=== PATIENT | male | born 1930 | race Caucasian/White ===

== ENCOUNTER 2017-08-29 19:11 | Emergency (ER) | payer MEDICARE, OTHER ==
[2017-08-29] MEDS ORDERED: Zofran 4 MG/2 ML VIAL IV ONE (19:40)
--- NOTE | 2017-08-29 19:44 | ERPHSYRPT ---
- History of Present Illness Time Seen by Provider: 08/29/17 19:30 Source: patient, family Exam Limitations: no limitations Patient Subjective Stated Complaint: pt seen dentist this am, given amoxicillin for tooth; this afternoon started feeling weak, chills, unable to stand without assist, nausea but denies vomiting, polyuria every 20-30 mins. Triage Nursing Assessment: pt assisted to room per wheelchair; a&o x3; skin p, w , & d; very weak to stand; family at bedside. Physician History: 87 y/o male with history of a fib comes to the ER with complaints of weakness, dizziness, nausea and chills that started today. Pt also admits to polyuria every 20 mins. Pt was seen by his dentist today and started on amoxicillin today. Pt denies any fever, headache, chest pain, shortness of breath, palpitations, abdominal pain, vomiting or diarrhea. Timing/Duration: today Severity: mild Modifying Factors: Improves With: nothing Associated Symptoms: nausea, chills Allergies/Adverse Reactions: No Known Drug Allergies Allergy (Verified 08/29/17 19:38) Hx Tetanus, Diphtheria Vaccination/Date Given: No Hx Influenza Vaccination/Date Given: No Hx Pneumococcal Vaccination/Date Given: Yes Immunizations Up to Date: No - Review of Systems Constitutional: Weakness, No Fever, No Chills Eyes: No Symptoms Ears, Nose, & Throat: No Symptoms Respiratory: No Cough, No Dyspnea Cardiac: No Chest Pain, No Edema, No Syncope Abdominal/Gastrointestinal: Nausea, No Abdominal Pain, No Vomiting, No Diarrhea Genitourinary Symptoms: Frequency, No Dysuria Musculoskeletal: No Back Pain, No Neck Pain Skin: No Rash Neurological: Dizziness, No Focal Weakness, No Sensory Changes Psychological: No Symptoms Endocrine: No Symptoms All Other Systems: Reviewed and Negative - Past Medical History Pertinent Past Medical History: Yes Neurological History: No Pertinent History ENT History: No Pertinent History Cardiac History: No Pertinent History, Arrhythmia Respiratory History: No Pertinent History Endocrine Medical History: No Pertinent History Musculoskeletal History: Arthritis GI Medical History: GERD History: No Pertinent History Psycho-Social History: No Pertinent History Male Reproductive Disorders: No Pertinent History - Past Surgical History Past Surgical History: Yes Neuro Surgical History: No Pertinent History Cardiac: No Pertinent History Respiratory: Chest Surgery Gastrointestinal: No Pertinent History Genitourinary: No Pertinent History Musculoskeletal: Joint Replacement Male Surgical History: No Pertinent History Other Surgical History: left knee replacement, left shoulder arthroscopic surgery - Social History Smoking Status: Never smoker How long have you smoked: 20 years Exposure to second hand smoke: No Drug Use: none Patient Lives Alone: No - Nursing Vital Signs Nursing Vital Signs: Initial Vital Signs Temperature 99.7 F 08/29/17 19:30 Pulse Rate 95 H 08/29/17 19:30 Respiratory Rate 18 08/29/17 19:30 Blood Pressure 135/79 08/29/17 19:30 O2 Sat by Pulse Oximetry 94 L 08/29/17 19:30 Pain Scale Pain Intensity 0 - Physical Exam General Appearance: no apparent distress, alert Eye Exam: PERRL/EOMI, eyes nml inspection Ears, Nose, Throat Exam: normal ENT inspection, TMs normal, pharynx normal, moist mucous membranes Neck Exam: normal inspection, non-tender, supple, full range of motion Respiratory Exam: normal breath sounds, lungs clear, No respiratory distress Cardiovascular Exam: regular rate/rhythm, normal heart sounds, normal peripheral pulses Gastrointestinal/Abdomen Exam: soft, normal bowel sounds, No tenderness, No mass Back Exam: normal inspection, normal range of motion, No CVA tenderness, No vertebral tenderness Extremity Exam: normal inspection, normal range of motion, pelvis stable Neurologic Exam: alert, oriented x 3, cooperative, normal mood/affect, nml cerebellar function, nml station & gait, sensation nml, No motor deficits Skin Exam: normal color, warm, dry, No rash Lymphatic Exam: No adenopathy SpO2: 94 Oxygen Delivery: Room Air - Course Nursing assessment & vital signs reviewed: Yes EKG Interpreted by Me: RATE, NORMAL AXIS, NORMAL INTERVALS, NORMAL QRS, NORMAL ST-T Ordered Tests: Active Orders 24 hr Category Date Time Status Collections Clerk STAT Care 08/29/17 19:39 Active EKG-ER Only STAT Care 08/29/17 19:38 Active IV Insertion STAT Care 08/29/17 19:38 Active CHEST 2 VIEWS (PA AND LAT) Stat Exams 08/29/17 20:00 Taken CBC W DIFF Stat Lab 08/29/17 20:30 Completed CK-Creatinine Phosphokinase Stat Lab 08/29/17 20:30 Completed CMP Stat Lab 08/29/17 20:30 Completed MAGNESIUM Stat Lab 08/29/17 20:30 Completed Manual Differential NC Stat Lab 08/29/17 20:30 Completed PROTIME WITH INR Stat Lab 08/29/17 20:30 Completed PTT Stat Lab 08/29/17 20:30 Completed TROPONIN Q3H Lab 08/29/17 20:30 Completed TROPONIN Q3H Lab 08/29/17 22:45 Ordered TROPONIN Q3H Lab 08/30/17 01:45 Ordered TROPONIN Q3H Lab 08/30/17 04:45 Ordered TROPONIN Q3H Lab 08/30/17 07:45 Ordered UA W/RFX UR CULTURE Stat Lab 08/29/17 19:39 Uncollected Medication Summary Generic Name Dose Route Start Last Admin Trade Name Freq PRN Reason Stop Dose Admin Sodium Chloride 1,000 mls @ 999 mls/hr 08/29/17 21:48 08/29/17 21:57 Sodium Chloride 0.9% 1000 Ml IV 08/29/17 22:48 999 mls/hr .Q1H1M STA Administration Discontinued Medications Generic Name Dose Route Start Last Admin Trade Name Freq PRN Reason Stop Dose Admin Sodium Chloride Confirm 08/29/17 21:53 Sodium Chloride 0.9% 1000 Ml Administered 08/29/17 21:54 Dose 1,000 mls @ ud .ROUTE .STK-MED ONE Ondansetron HCl 4 mg 08/29/17 19:40 08/29/17 20:44 Zofran 4 Mg/2 Ml Vial IV 08/29/17 19:41 4 mg STAT ONE Administration Ondansetron HCl Confirm 08/29/17 20:35 Zofran 4 Mg/2 Ml Vial Administered 08/29/17 20:36 Dose 4 mg .ROUTE .STK-MED ONE Lab/Rad Data: Laboratory Result Diagrams 08/29/17 20:30 08/29/17 20:30 Laboratory Results 08/29/17 08/29/17 08/29/17 Range/Units 20:30 20:30 20:30 WBC (4.0-10.5) K/mm3 RBC (4.1-5.6) M/mm3 Hgb (12.5-18.0) gm/dl Hct (42-50) % MCV (78-100) fl MCH (26-32) pg MCHC (32-36) g/dl RDW (11.5-14.0) % Plt Count (150-450) K/mm3 MPV (6-9.5) fl Absolute Granulocytes (1.4-6.9) PT 15.8 H (8.83-12.87) SECONDS INR 1.35 (0.8-3.0) APTT 45.9 H (24.1-36.1) SECONDS Sodium 137 (137-145) mmol/L Potassium 3.6 (3.5-5.1) mmol/L Chloride 108 H (98-107) mmol/L Carbon Dioxide 22 (22-30) mmol/L Anion Gap 11.0 (5-15) MEQ/L BUN 20 (9-20) mg/dL Creatinine 1.08 (0.66-1.25) mg/dL Estimated GFR > 60.0 ML/MIN Glucose 136 H (74-106) mg/dL Calcium 9.2 (8.4-10.2) mg/dL Magnesium 1.9 (1.6-2.3) mg/dL Total Bilirubin 1.20 (0.2-1.3) mg/dL AST 20 (17-59) U/L ALT 20 (0-50) U/L Alkaline Phosphatase 68 (38-126) U/L Creatine Kinase 141 (55-170) U/L Troponin I < 0.012 (0.000-0.034) ng/mL Serum Total Protein 6.4 (6.3-8.2) g/dL Albumin 3.8 (3.5-5.0) g/dL /07/12 Range/Units 20:30 WBC 10.0 (4.0-10.5) K/mm3 RBC 4.60 (4.1-5.6) M/mm3 Hgb 14.3 (12.5-18.0) gm/dl Hct 41.1 L (42-50) % MCV 89.3 (78-100) fl MCH 31.1 (26-32) pg MCHC 34.8 (32-36) g/dl RDW 13.9 (11.5-14.0) % Plt Count 168 (150-450) K/mm3 MPV 9.9 H (6-9.5) fl Absolute Granulocytes 9.15 H (1.4-6.9) PT (8.83-12.87) SECONDS INR (0.8-3.0) APTT (24.1-36.1) SECONDS Sodium (137-145) mmol/L Potassium (3.5-5.1) mmol/L Chloride (98-107) mmol/L Carbon Dioxide (22-30) mmol/L Anion Gap (5-15) MEQ/L BUN (9-20) mg/dL Creatinine (0.66-1.25) mg/dL Estimated GFR ML/MIN Glucose (74-106) mg/dL Calcium (8.4-10.2) mg/dL Magnesium (1.6-2.3) mg/dL Total Bilirubin (0.2-1.3) mg/dL AST (17-59) U/L ALT (0-50) U/L Alkaline Phosphatase (38-126) U/L Creatine Kinase (55-170) U/L Troponin I (0.000-0.034) ng/mL Serum Total Protein (6.3-8.2) g/dL Albumin (3.5-5.0) g/dL - Progress Progress: improved Progress Note: 08/29/17 22:30 Pt feels better after receiving a liter of NS fluids. The labs, including cardiac workup, and CXR are all within normal limits. Pt is able to walk with no difficulties. - Departure Time of Disposition: 22:32 Departure Disposition: Home Clinical Impression: Weakness, Dehydration Condition: Stable Critical Care Time: No Referrals: GIOVANNI PARISI [Primary Care Provider] - Instructions: Generalized Weakness (DC), Dehydration, Adult (DC) Additional Instructions: Return to the ER if you should have worsening dizziness, weakness, chest pain, shortness of breath or nausea.
[2017-08-29] MEDS ORDERED: Zofran 4 MG/2 ML VIAL ONE (20:35)
[2017-08-29 21:13] LABS: Granulocyte Absolute (ANC) 9.15 (1.4-6.9); Hematocrit 41.1 % (42-50); Hemoglobin 14.3 gm/dl (12.5-18.0); Mean Cell Volume 89.3 fl (78-100); Mean Corpuscular Hemoglobin 31.1 pg (26-32); Mean Corpuscular Hgb Concent. 34.8 g/dl (32-36); Mean Platelet Volume 9.9 fl (6-9.5); Platelet Count 168 K/mm3 (150-450); Red Cell Distribution Width 13.9 % (11.5-14.0)
[2017-08-29 21:32] LABS: INR 1.35 (0.8-3.0)
[2017-08-29 21:34] LABS: PTT 45.9 SECONDS (24.1-36.1)
[2017-08-29 21:37] LABS: ALBUMIN 3.8 g/dL (3.5-5.0); ALKALINE PHOSPHATASE 68 U/L (38-126); BLOOD UREA NITROGEN 20 mg/dL (9-20); CHLORIDE 108 mmol/L (98-107); CK-Creatinine Phosphokinase 141 U/L (55-170); Calcium 9.2 mg/dL (8.4-10.2); Carbon Dioxide 22 mmol/L (22-30); Creatinine 1 1.08 mg/dL (0.66-1.25); Glucose 136 mg/dL (74-106); Potassium 3.6 mmol/L (3.5-5.1); SGOT/AST 20 U/L (17-59); SGPT/ALT 20 U/L (0-50); SODIUM 137 mmol/L (137-145); Total Protein 6.4 g/dL (6.3-8.2)
[2017-08-29] MEDS ORDERED: Sodium Chloride 0.9% 1000 ML 1,000 ML IV STA (21:48)
[2017-08-29] MEDS ORDERED: Sodium Chloride 0.9% 1000 ML 1,000 ML ONE (21:53)
[2017-08-29 22:45] VITALS: BP 93/53; PULSE 72; O2SAT 95
[2017-08-29 22:51] LABS: BAND 5 % (0.0-2.0); Lymphocytes 3 % (24-44); Monocyte 6 % (0.0-12.0); Neutrophils 86 % (36.-66.); Platelet Estimate NORMAL (NORMAL); Total Cells Counted 100
--- NOTE | 2017-08-30 09:01 | XRAY ---
Indication: Weakness and fever. Comparison: July 12, 2017. PA/lateral chest again demonstrates a few incidental calcified granulomas. Minimal lingular fibrosis/scarring. No focal infiltrate, consolidation, or large effusion. Heart is not enlarged. Bony thorax intact again with mild osteopenia, degenerative changes, and scoliosis. Impression: Nonacute chest with chronic features.
== END 2017-08-29 22:44 | disposition home or self-care (01) ==
LOC: ED 19:11
DX: R53.1 Weakness (principal); E86.0 Dehydration; R42 Dizziness and giddiness; R11.0 Nausea; R35.8 Other polyuria
CPT/HCPCS: 36000; 36415; 71046; 80053; 82550; 83735; 84484; 85025; 85610; 85730; 93005; 93041; 96360; 96374; 99284; J2405

== ENCOUNTER 2017-08-30 18:54 | Inpatient (IN) | payer MEDICARE ==
[2017-08-30] MEDS ORDERED: Zofran 4 MG/2 ML VIAL IV ONE (19:24)
[2017-08-30] MEDS ORDERED: Sodium Chloride 0.9% 1000 ML 1,000 ML IV STA (19:24)
[2017-08-30] MEDS ORDERED: Zofran 4 MG/2 ML VIAL ONE (19:29)
[2017-08-30] MEDS ORDERED: Sodium Chloride 0.9% 1000 ML 1,000 ML ONE (19:29)
--- NOTE | 2017-08-30 19:33 | ERPHSYRPT ---
- History of Present Illness Time Seen by Provider: 08/30/17 19:20 Source: patient, family Exam Limitations: no limitations Patient Subjective Stated Complaint: pt states he has been increasingly weak through the day, has had urinary frequency, and has alverto chilling. Triage Nursing Assessment: pt alert and oriented, answers questions approp. pt ambulatory with cane, slow steady gait noted. respirations nonlabored. bilat upper and lower ext strength equal. edema noted to bilat feet and ankles, worse to rt side- pt states is his norm. pt voided small amt on arrival- katerin and clear Physician History: 87 y/o male comes back to the ER with complaints of weakness, dizziness, nausea and polyuria that started again today. Pt was seen in the ER last night and improved with NS fluids. Pt also admits to chills, but no fever, chest pain, shortness of breath, cough, abdominal pain, vomiting or diarrhea. Timing/Duration: today Severity: mild Associated Symptoms: nausea, chills Allergies/Adverse Reactions: No Known Drug Allergies Allergy (Verified 08/29/17 19:38) Home Medications: Amoxicillin [Amoxil] 500 mg PO TID 08/30/17 [History] Hx Tetanus, Diphtheria Vaccination/Date Given: No Hx Influenza Vaccination/Date Given: No Hx Pneumococcal Vaccination/Date Given: Yes Immunizations Up to Date: No - Review of Systems Constitutional: Weakness, No Fever, No Chills Eyes: No Symptoms Ears, Nose, & Throat: No Symptoms Respiratory: No Cough, No Dyspnea Cardiac: No Chest Pain, No Edema, No Syncope Abdominal/Gastrointestinal: Nausea, No Abdominal Pain, No Vomiting, No Diarrhea Genitourinary Symptoms: Frequency, No Dysuria Musculoskeletal: No Back Pain, No Neck Pain Skin: No Rash Neurological: No Dizziness, No Focal Weakness, No Sensory Changes Psychological: No Symptoms Endocrine: No Symptoms All Other Systems: Reviewed and Negative - Past Medical History Pertinent Past Medical History: Yes Neurological History: No Pertinent History ENT History: No Pertinent History Cardiac History: No Pertinent History, Arrhythmia Respiratory History: No Pertinent History Endocrine Medical History: No Pertinent History Musculoskeletal History: Arthritis GI Medical History: GERD History: No Pertinent History Psycho-Social History: No Pertinent History Male Reproductive Disorders: No Pertinent History - Past Surgical History Past Surgical History: Yes Neuro Surgical History: No Pertinent History Cardiac: No Pertinent History Respiratory: Chest Surgery Gastrointestinal: No Pertinent History Genitourinary: No Pertinent History Musculoskeletal: Joint Replacement Male Surgical History: No Pertinent History Other Surgical History: left knee replacement, left shoulder arthroscopic surgery - Social History Smoking Status: Former smoker How long have you smoked: 20 years Exposure to second hand smoke: No Drug Use: none Patient Lives Alone: No - Nursing Vital Signs Nursing Vital Signs: Initial Vital Signs Temperature 99.5 F 08/30/17 19:08 Pulse Rate 89 08/30/17 19:08 Respiratory Rate 18 08/30/17 19:08 Blood Pressure 159/73 08/30/17 19:08 O2 Sat by Pulse Oximetry 96 08/30/17 19:08 Pain Scale Pain Intensity 2 - Physical Exam General Appearance: no apparent distress, alert Eye Exam: PERRL/EOMI, eyes nml inspection Ears, Nose, Throat Exam: normal ENT inspection, TMs normal, pharynx normal, moist mucous membranes Neck Exam: normal inspection, non-tender, supple, full range of motion Respiratory Exam: normal breath sounds, lungs clear, No respiratory distress Cardiovascular Exam: regular rate/rhythm, normal heart sounds, normal peripheral pulses Gastrointestinal/Abdomen Exam: soft, normal bowel sounds, No tenderness, No mass Back Exam: normal inspection, normal range of motion, No CVA tenderness, No vertebral tenderness Extremity Exam: normal inspection, normal range of motion, pelvis stable Neurologic Exam: alert, oriented x 3, cooperative, normal mood/affect, nml cerebellar function, nml station & gait, sensation nml, No motor deficits Skin Exam: normal color, warm, dry, No rash Lymphatic Exam: No adenopathy SpO2: 96 Oxygen Delivery: Room Air - Course Nursing assessment & vital signs reviewed: Yes EKG Interpreted by Me: RATE, NORMAL AXIS, NORMAL INTERVALS, NORMAL QRS Ordered Tests: Active Orders 24 hr Category Date Time Status Machine Heel Seat Laster STAT Care 08/30/17 19:24 Active EKG-ER Only STAT Care 08/30/17 19:24 Active IV Insertion STAT Care 08/30/17 19:24 Active ABDOMEN AND PELVIS W/0 CONTRAS [CT] Stat Exams 08/30/17 20:33 Taken CHEST WITHOUT CONTRAST [CT] Stat Exams 08/30/17 20:30 Taken HEAD WITHOUT CONTRAST [CT] Stat Exams 08/30/17 20:30 Taken CBC W DIFF Stat Lab 08/30/17 19:24 Completed CK-Creatinine Phosphokinase Stat Lab 08/30/17 19:24 Completed CMP Stat Lab 08/30/17 19:24 Completed CULTURE,URINE Stat Lab 08/30/17 19:36 Received Lactic Acid Stat Lab 08/30/17 22:43 Ordered [place] Screen Stat Lab 08/30/17 Completed TROPONIN Q3H Lab 08/30/17 19:30 Completed TROPONIN Q3H Lab 08/30/17 22:30 Ordered TROPONIN Q3H Lab 08/31/17 01:30 Ordered TROPONIN Q3H Lab 08/31/17 04:30 Ordered TROPONIN Q3H Lab 08/31/17 07:30 Ordered UA W/ MICROSCOPIC Stat Lab 08/30/17 19:36 Completed Medication Summary Discontinued Medications Generic Name Dose Route Start Last Admin Trade Name Freq PRN Reason Stop Dose Admin Acetaminophen 1,000 mg 08/30/17 20:16 08/30/17 20:27 Tylenol Extra Strength 500 Mg PO 08/30/17 20:17 1,000 mg STAT STA Administration Acetaminophen Confirm 08/30/17 20:26 Tylenol Extra Strength 500 Mg Administered 08/30/17 20:27 Dose 1,000 mg .ROUTE .STK-MED ONE Sodium Chloride 1,000 mls @ 999 mls/hr 08/30/17 19:24 08/30/17 19:32 Sodium Chloride 0.9% 1000 Ml IV 08/30/17 20:24 999 mls/hr .Q1H1M STA Administration Sodium Chloride Confirm 08/30/17 19:29 Sodium Chloride 0.9% 1000 Ml Administered 08/30/17 19:30 Dose 1,000 mls @ ud .ROUTE .STK-MED ONE Piperacillin Sod/Tazobactam Sod 3.375 gm in 100 mls @ 200 mls/hr 08/30/17 20: 36 08/30/17 20:52 Zosyn 3.375gm/100 Ml D5w IV 08/30/17 21:05 200 ml/hr STAT STA 200 mls/hr Administration Piperacillin Sod/Tazobactam Sod Confirm 08/30/17 20:40 Zosyn 3.375gm/100 Ml D5w Administered 08/30/17 20:41 Dose 3.375 gm in 100 mls @ ud IV .STK-MED ONE Ondansetron HCl 4 mg 08/30/17 19:24 08/30/17 19:31 Zofran 4 Mg/2 Ml Vial IV 08/30/17 19:25 4 mg STAT ONE Administration Ondansetron HCl Confirm 08/30/17 19:29 Zofran 4 Mg/2 Ml Vial Administered 08/30/17 19:30 Dose 4 mg .ROUTE .STK-MED ONE Lab/Rad Data: Laboratory Result Diagrams 08/30/17 19:24 08/30/17 19:24 Laboratory Results 08/30/17 08/30/17 08/30/17 Range/Units Unknown 19:36 19:30 WBC (4.0-10.5) K/mm3 RBC (4.1-5.6) M/mm3 Hgb (12.5-18.0) gm/dl Hct (42-50) % MCV (78-100) fl MCH (26-32) pg MCHC (32-36) g/dl RDW (11.5-14.0) % Plt Count (150-450) K/mm3 MPV (6-9.5) fl Gran % (36.0-66.0) % Eos # (Auto) (0-0.5) Absolute Lymphs (auto) (1.0-4.6) Absolute Monos (auto) (0.0-1.3) Lymphocytes % (24.0-44.0) % Monocytes % (0.0-12.0) % Eosinophils % (0.00-5.0) % Basophils % (0.0-0.4) % Absolute Granulocytes (1.4-6.9) Basophils # (0-0.4) Sodium (137-145) mmol/L Potassium (3.5-5.1) mmol/L Chloride (98-107) mmol/L Carbon Dioxide (22-30) mmol/L Anion Gap (5-15) MEQ/L BUN (9-20) mg/dL Creatinine (0.66-1.25) mg/dL Estimated GFR ML/MIN Glucose (74-106) mg/dL Calcium (8.4-10.2) mg/dL Total Bilirubin (0.2-1.3) mg/dL AST (17-59) U/L ALT (0-50) U/L Alkaline Phosphatase (38-126) U/L Creatine Kinase (55-170) U/L Troponin I 0.016 (0.000-0.034) ng/mL Serum Total Protein (6.3-8.2) g/dL Albumin (3.5-5.0) g/dL Ur Collection Type VOID Urine Color YELLOW (YELLOW) Urine Appearance CLEAR (CLEAR) Urine pH 5.0 (5-6) Ur Specific [place] 1.020 (1.005-1.025) Urine Protein TRACE (Negative) Urine Ketones SMALL (NEGATIVE) Urine Blood 50 (0-5) [place]/ul Urine Nitrite NEGATIVE (NEGATIVE) Urine Bilirubin NEGATIVE (NEGATIVE) Urine Urobilinogen NORMAL (0-1) mg/dL Ur Leukocyte Esterase NEGATIVE (NEGATIVE) Urine Microscopic RBC 0-2 (0-2) /HPF Urine Culture Reflexed YES (NO) Urine Glucose NEGATIVE (NEGATIVE) mg/dL Monoscreen NEGATIVE (Negative) Specimen Received 08/30/17 19308/30/17 08/30/17 Range/Units 19:24 19:24 WBC 8.5 (4.0-10.5) K/mm3 RBC 4.64 (4.1-5.6) M/mm3 Hgb 14.4 (12.5-18.0) gm/dl Hct 41.8 L (42-50) % MCV 90.1 (78-100) fl MCH 31.0 (26-32) pg MCHC 34.4 (32-36) g/dl RDW 14.3 H (11.5-14.0) % Plt Count 139 L (150-450) K/mm3 MPV 9.7 H (6-9.5) fl Gran % 85.8 H (36.0-66.0) % Eos # (Auto) 0.01 (0-0.5) Absolute Lymphs (auto) 0.64 L (1.0-4.6) Absolute Monos (auto) 0.54 (0.0-1.3) Lymphocytes % 7.6 L (24.0-44.0) % Monocytes % 6.4 (0.0-12.0) % Eosinophils % 0.1 (0.00-5.0) % Basophils % 0.1 (0.0-0.4) % Absolute Granulocytes 7.25 H (1.4-6.9) Basophils # 0.01 (0-0.4) Sodium 136 L (137-145) mmol/L Potassium 4.1 (3.5-5.1) mmol/L Chloride 104 (98-107) mmol/L Carbon Dioxide 23 (22-30) mmol/L Anion Gap 12.8 (5-15) MEQ/L BUN 22 H (9-20) mg/dL Creatinine 1.27 H (0.66-1.25) mg/dL Estimated GFR 57.3 ML/MIN Glucose 123 H (74-106) mg/dL Calcium 9.5 (8.4-10.2) mg/dL Total Bilirubin 1.60 H (0.2-1.3) mg/dL AST 28 (17-59) U/L ALT 27 (0-50) U/L Alkaline Phosphatase 67 (38-126) U/L Creatine Kinase 230 H (55-170) U/L Troponin I (0.000-0.034) ng/mL Serum Total Protein 6.9 (6.3-8.2) g/dL Albumin 4.1 (3.5-5.0) g/dL Ur Collection Type Urine Color (YELLOW) Urine Appearance (CLEAR) Urine pH (5-6) Ur Specific [place] (1.005-1.025) Urine Protein (Negative) Urine Ketones (NEGATIVE) Urine Blood (0-5) [place]/ul Urine Nitrite (NEGATIVE) Urine Bilirubin (NEGATIVE) Urine Urobilinogen (0-1) mg/dL Ur Leukocyte Esterase (NEGATIVE) Urine Microscopic RBC (0-2) /HPF Urine Culture Reflexed (NO) Urine Glucose (NEGATIVE) mg/dL Monoscreen (Negative) Specimen Received - Progress Progress: improved Progress Note: 08/30/17 22:[address] head, chest, abd/pelvis do not show any acute findings. The UA is also negative. The source may come from a tooth infection that the patient is taking amoxicillin or prostatitis. In the ER, patient has a fever of 101.7. Pt was given NS fluids, zofran, and tylenol with some improvement. Pt was also given a dose of zosyn. Pt has been admitted to Dr Pineda for fever of unknown etiology. - Departure Time of Disposition: 22:46 Departure Disposition: In-patient Admission Clinical Impression: Fever of unknown origin Condition: Fair Critical Care Time: Yes Critical Care Time(excluding separately billable procedures): 30-74 minutes Referrals: GIOVANNI PARISI [Primary Care Provider] -
[2017-08-30 19:35] LABS: BASOPHIL % 0.1 % (0.0-0.4); Basophil (Absolute #) 0.01 (0-0.4); Eosinophil % 0.1 % (0.00-5.0); Eosinophil (Absolute #) 0.01 (0-0.5); Granulocyte Absolute (ANC) 7.25 (1.4-6.9); Granulocytes % 85.8 % (36.0-66.0); Hematocrit 41.8 % (42-50); Hemoglobin 14.4 gm/dl (12.5-18.0); Lymphocyte (Absolute #) 0.64 (1.0-4.6); Lymphocytes % 7.6 % (24.0-44.0); Mean Cell Volume 90.1 fl (78-100); Mean Corpuscular Hgb Concent. 34.4 g/dl (32-36); Mean Platelet Volume 9.7 fl (6-9.5); Monocyte (Absolute #) 0.54 (0.0-1.3); Monocytes % 6.4 % (0.0-12.0); Platelet Count 139 K/mm3 (150-450); Red Blood Count 4.64 M/mm3 (4.1-5.6); Red Cell Distribution Width 14.3 % (11.5-14.0); White Blood Count 8.5 K/mm3 (4.0-10.5)
[2017-08-30 19:54] LABS: ALBUMIN 4.1 g/dL (3.5-5.0); ANION GAP 12.8 MEQ/L (5-15); BILIRUBIN,TOTAL 1.6 mg/dL (0.2-1.3); Calcium 9.5 mg/dL (8.4-10.2); Creatinine 1 1.27 mg/dL (0.66-1.25); Potassium 4.1 mmol/L (3.5-5.1); Total Protein 6.9 g/dL (6.3-8.2)
[2017-08-30 19:54] LABS: Appearance CLEAR (CLEAR); Leukocyte Esterase NEGATIVE (NEGATIVE); Nitrite NEGATIVE (NEGATIVE); Protein,Urine Dip TRACE (Negative)
[2017-08-30 19:55] LABS: Bilirubin NEGATIVE (NEGATIVE); Blood 50 Ery/ul (0-5); Glucose NEGATIVE (NEGATIVE); Ketones SMALL (NEGATIVE); Urobilinogen NORMAL mg/dL (0-1)
[2017-08-30 19:58] LABS: RBC 0-2 /HPF (0-2)
[2017-08-30] MEDS ORDERED: TYLENOL EXTRA STRENGTH 500 MG PO STA (20:16)
[2017-08-30] MEDS ORDERED: TYLENOL EXTRA STRENGTH 500 MG ONE (20:26)
[2017-08-30] MEDS ORDERED: Zosyn 3.375GM/100 Ml D5W 3.375 GM/100 ML IVPB IV STA (20:36)
[2017-08-30] MEDS ORDERED: Zosyn 3.375GM/100 Ml D5W 3.375 GM/100 ML IVPB IV ONE (20:40)
[2017-08-30] MEDS ORDERED: Zofran 4 MG/2 ML VIAL IV PRN (22:46)
[2017-08-31] MEDS: Sodium Chloride 0.9% 1000 ML 1,000 ML IV SCH ×3 (00:03→23:59)
[2017-08-31] MEDS: Zosyn 3.375GM/100 Ml D5W 3.375 GM/100 ML IVPB IV SCH ×5 (00:03→23:58)
[2017-08-31] MEDS ORDERED: TYLENOL 325 MG PO PRN (04:24)
[2017-08-31 06:12] LABS: BASOPHIL % 0.1 % (0.0-0.4); Basophil (Absolute #) 0.01 (0-0.4); Eosinophil % 0.2 % (0.00-5.0); Eosinophil (Absolute #) 0.02 (0-0.5); Granulocyte Absolute (ANC) 6.45 (1.4-6.9); Granulocytes % 79.6 % (36.0-66.0); Hematocrit 36.2 % (42-50); Hemoglobin 12.6 gm/dl (12.5-18.0); Lymphocyte (Absolute #) 0.88 (1.0-4.6); Lymphocytes % 10.9 % (24.0-44.0); Mean Cell Volume 90.5 fl (78-100); Mean Corpuscular Hemoglobin 31.5 pg (26-32); Mean Corpuscular Hgb Concent. 34.8 g/dl (32-36); Mean Platelet Volume 10.4 fl (6-9.5); Monocyte (Absolute #) 0.75 (0.0-1.3); Monocytes % 9.2 % (0.0-12.0); Platelet Count 116 K/mm3 (150-450); Red Cell Distribution Width 13.9 % (11.5-14.0); White Blood Count 8.1 K/mm3 (4.0-10.5)
[2017-08-31 06:25] LABS: ANION GAP 9.2 MEQ/L (5-15); BLOOD UREA NITROGEN 18 mg/dL (9-20); CHLORIDE 108 mmol/L (98-107); Calcium 8.4 mg/dL (8.4-10.2); Carbon Dioxide 22 mmol/L (22-30); Creatinine 1 1.09 mg/dL (0.66-1.25); Glucose 120 mg/dL (74-106); Potassium 3.7 mmol/L (3.5-5.1); SODIUM 135 mmol/L (137-145)
--- NOTE | 2017-08-31 07:34 | XRAY ---
Indication: Fever and weakness. Multiple contiguous axial images obtained through the chest without contrast as ordered. Comparison: None Mild peripheral fibrosis/scarring in both lung bases and inferior right middle lobe and lingula. No suspicious pulmonary mass, infiltrate, or effusion. Heart is not enlarged with tiny pericardial effusion. Mild aortic calcifications without aneurysmal dilatation. Right suprahilar calcified nodes. No pathologic mediastinal lymphadenopathy. Bony thorax intact with mild degenerative changes throughout spine and mild dextroscoliosis. CT abdomen reported separately. Impression: Nonacute CT chest without contrast exam with chronic features. Comment: Preliminary interpretation was made by [facility]. No discrepancy. CTDI 67.80
--- NOTE | 2017-08-31 07:35 | XRAY ---
Indication: Fever and weakness. Multiple contiguous axial images obtained through the head without contrast. Comparison: None Age-appropriate global atrophy and minimal periventricular degenerative micro-ischemia bilaterally. No acute intracranial hemorrhage, abnormal extra-axial fluid collection, or mass effect. Fourth ventricle is midline without hydrocephalus. Bony calvarium intact. Very minimal mucosal thickening of the inferior left maxillary sinus. Remaining visualized paranasal sinuses and mastoid air cells are clear. Impression: Nonacute senile brain. Comment: Preliminary interpretation was made by [facility]. No critical discrepancy. CTDI 17.76
--- NOTE | 2017-08-31 07:38 | XRAY ---
Indication: Fever, weakness, and nausea. Multiple contiguous axial images obtained through the abdomen and pelvis without contrast as ordered. Comparison: None CT chest reported separately. Noncontrasted stomach and bowel loops appear nonobstructed. Previous reported appendectomy. Mild diffuse scattered colonic fecal debris throughout. Also scattered descending and sigmoid diverticulosis without diverticulitis. No free fluid/air. Bilateral parapelvic renal cysts. Enlarged prostate gland impresses on the base of the bladder. Remaining liver, gallbladder, pancreas, spleen, adrenal glands, kidneys, ureters, and bladder appear unremarkable for noncontrasted exam. Mild scattered aortoiliac calcifications without AAA. Osseous structures demonstrates mild/moderate degenerative changes throughout the spine greatest at the lumbosacral junction. Also bilateral L5 spondylolysis with 7 mm spondylolisthesis. 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 Small fatty inguinal hernias, left greater than right. Impression: 1. No acute intra-abdominal/pelvic abnormalities on this noncontrast exam. 2. Incidental mild fecal stasis without obstruction, colonic diverticulosis, bilateral renal cysts, enlarged prostate gland, bilateral fatty inguinal hernias, and bilateral L5 spondylolysis with grade 1 spondylolisthesis. Comment: Preliminary interpretation was made by [facility]. No discrepancy. CTDI 23.68
--- NOTE | 2017-08-31 11:56 | PCM.HP ---
History of Present Illness - Chief Complaint Chief Complaint: fever of unknown origin History of Present Illness: Mr.DE BOOTHE is a 87 year old male pt of Dr. Dixon with hx afib who came in to the ER with a fever last night. He first became ill 2d ago - started feeling cold and chilled in the evening with some weakness and polyuria. He came to ER , was thought to be dehydrated, given IV fluids after which he felt much better and was discharged to home. Yesterday morning he felt well, but in the afternoon and evening started having chills and weakness again so returned to the ER. He was foundt o have a fever of 101.6. WBC were wnl, no tachycardia. UA with 50 blood. Urine culture was done. Blood cultures were discussed with me by ER physician, he stated they were being ordered, but for some reason they were not done. Pt was given zosyn IV and admitted. Blood cultures were ordered by me this morning. Pt saw his dentist 2d ago for a toothache; dentist noted some gum swelling and put pt on amoxicillin. - Review of Systems Constitutional: Fever, Chills, Fatigue, Weakness Ears, Nose, & Throat: Mouth Pain Cardiac: Edema (chronic x 2 yrs) Abdominal/Gastrointestinal: Nausea (last night) Genitourinary Symptoms: Frequency, Incontinence Musculoskeletal: Arthralgias (chronic) Psychological: Depression (chronic intermittent), No Suicidal Ideations, No Homicidal Ideations All Other Systems: Reviewed and Negative Medications & Allergies Home Medications: Home Medication List Dabigatran Etexilate Mesylate [Pradaxa] 150 mg PO BID #60 capsule 01/11/13 [Rx Confirmed 08/30/17] Diltiazem HCl [Cardizem Cd] 180 mg PO DAILY #30 cap.er.24h 07/14/15 [Rx Confirmed 08/30/17] Amoxicillin [Amoxil] 500 mg PO TID 08/30/17 [History Confirmed 08/30/17] Allergies/Adverse Reactions: Allergies Allergy/AdvReac Type Severity Reaction Status Date / Time No Known Drug Allergies Allergy Verified 08/29/17 19:38 - Past Medical History Past Medical History: Yes Neurological History: No Pertinent History ENT History: No Pertinent History Cardiac History: Arrhythmia Respiratory History: No Pertinent History Endocrine Medical History: No Pertinent History Musculoskelatal History: Arthritis GI Medical History: GERD History: No Pertinent History Pyscho-Social History: No Pertinent History Male Reproductive Disorders: No Pertinent History - Past Surgical History Past Surgical History: Yes Neuro Surgical History: No Pertinent History Cardiac History: No Pertinent History Respiratory Surgery: No Pertinent History GI Surgical History: No Pertinent History Genitourinary Surgical Hx: No Pertinent History Musculskeletal Surgical Hx: Joint Replacement Male Surgical History: No Pertinent History Other Surgical History: left knee replacement, left shoulder arthroscopic surgery, Right hip replacement - Social History Smoking Status: Never smoker How long have you smoked: 20 years Exposure to second hand smoke: No Alcohol: Daily Drug Use: none - Physical Exam Vital Signs: Vital Signs - 24 hr Temp Pulse Resp BP Pulse Ox 08/31/17 11:33 97.9 F 59 L 18 95/52 94 L 08/31/17 07:42 98.8 F 63 18 118/61 92 L 08/31/17 04:12 99.9 F 68 22 112/60 92 L 08/30/17 23:54 98.2 F 66 24 116/59 94 L 08/30/17 22:46 96 08/30/17 21:50 71 22 133/78 94 L 08/30/17 20:45 82 18 136/79 92 L 08/30/17 19:56 101.6 F 78 20 146/60 97 08/30/17 19:08 99.5 F 89 18 159/73 96 General Appearance: no apparent distress, alert Neurologic Exam: oriented x 3, cooperative Eye Exam: eyes nml inspection Ears, Nose, Throat Exam: moist mucous membranes Neck Exam: normal inspection, non-tender, No mass, No lymphadenopathy Respiratory Exam: normal breath sounds, lungs clear, No crackles/rales, No rhonchi, No wheezing Cardiovascular Exam: regular rate/rhythm, normal heart sounds, No murmur Gastrointestinal/Abdomen Exam: soft, normal bowel sounds, No tenderness, No distention, No mass, No guarding, No rebound Back Exam: normal inspection, No CVA tenderness, No rash Extremity Exam: other (chronic venous stasis change in RLE. no pretibial edema bilat.) Skin Exam: normal color, warm, dry, No rash Results - Labs Lab/Micro Results: Lab Results-Last 24 Hours 08/30/17 08/30/17 08/30/17 Range/Units 19:24 19:24 19:30 WBC 8.5 (4.0-10.5) K/mm3 RBC 4.64 (4.1-5.6) M/mm3 Hgb 14.4 (12.5-18.0) gm/dl Hct 41.8 L (42-50) % MCV 90.1 (78-100) fl MCH 31.0 (26-32) pg MCHC 34.4 (32-36) g/dl RDW 14.3 H (11.5-14.0) % Plt Count 139 L (150-450) K/mm3 MPV 9.7 H (6-9.5) fl Gran % 85.8 H (36.0-66.0) % Eos # (Auto) 0.01 (0-0.5) Absolute Lymphs (auto) 0.64 L (1.0-4.6) Absolute Monos (auto) 0.54 (0.0-1.3) Lymphocytes % 7.6 L (24.0-44.0) % Monocytes % 6.4 (0.0-12.0) % Eosinophils % 0.1 (0.00-5.0) % Basophils % 0.1 (0.0-0.4) % Absolute Granulocytes 7.25 H (1.4-6.9) Basophils # 0.01 (0-0.4) Sodium 136 L (137-145) mmol/L Potassium 4.1 (3.5-5.1) mmol/L Chloride 104 (98-107) mmol/L Carbon Dioxide 23 (22-30) mmol/L Anion Gap 12.8 (5-15) MEQ/L BUN 22 H (9-20) mg/dL Creatinine 1.27 H (0.66-1.25) mg/dL Estimated GFR 57.3 ML/MIN Glucose 123 H (74-106) mg/dL Lactic Acid (0.4-2.0) Calcium 9.5 (8.4-10.2) mg/dL Total Bilirubin 1.60 H (0.2-1.3) mg/dL AST 28 (17-59) U/L ALT 27 (0-50) U/L Alkaline Phosphatase 67 (38-126) U/L Creatine Kinase 230 H (55-170) U/L Troponin I 0.016 (0.000-0.034) ng/mL Serum Total Protein 6.9 (6.3-8.2) g/dL Albumin 4.1 (3.5-5.0) g/dL Ur Collection Type Urine Color (YELLOW) Urine Appearance (CLEAR) Urine pH (5-6) Ur Specific [place] (1.005-1.025) Urine Protein (Negative) Urine Ketones (NEGATIVE) Urine Blood (0-5) [place]/ul Urine Nitrite (NEGATIVE) Urine Bilirubin (NEGATIVE) Urine Urobilinogen (0-1) mg/dL Ur Leukocyte Esterase (NEGATIVE) Urine Microscopic RBC (0-2) /HPF Urine Culture Reflexed (NO) Urine Glucose (NEGATIVE) mg/dL Monoscreen (Negative) Specimen Received 08/30/17 08/30/17 08/30/17 Range/Units 19:36 22:30 22:54 WBC (4.0-10.5) K/mm3 RBC (4.1-5.6) M/mm3 Hgb (12.5-18.0) gm/dl Hct (42-50) % MCV (78-100) fl MCH (26-32) pg MCHC (32-36) g/dl RDW (11.5-14.0) % Plt Count (150-450) K/mm3 MPV (6-9.5) fl Gran % (36.0-66.0) % Eos # (Auto) (0-0.5) Absolute Lymphs (auto) (1.0-4.6) Absolute Monos (auto) (0.0-1.3) Lymphocytes % (24.0-44.0) % Monocytes % (0.0-12.0) % Eosinophils % (0.00-5.0) % Basophils % (0.0-0.4) % Absolute Granulocytes (1.4-6.9) Basophils # (0-0.4) Sodium (137-145) mmol/L Potassium (3.5-5.1) mmol/L Chloride (98-107) mmol/L Carbon Dioxide (22-30) mmol/L Anion Gap (5-15) MEQ/L BUN (9-20) mg/dL Creatinine (0.66-1.25) mg/dL Estimated GFR ML/MIN Glucose (74-106) mg/dL Lactic Acid 0.7 (0.4-2.0) Calcium (8.4-10.2) mg/dL Total Bilirubin (0.2-1.3) mg/dL AST (17-59) U/L ALT (0-50) U/L Alkaline Phosphatase (38-126) U/L Creatine Kinase (55-170) U/L Troponin I 0.024 (0.000-0.034) ng/mL Serum Total Protein (6.3-8.2) g/dL Albumin (3.5-5.0) g/dL Ur Collection Type VOID Urine Color YELLOW (YELLOW) Urine Appearance CLEAR (CLEAR) Urine pH 5.0 (5-6) Ur Specific [place] 1.020 (1.005-1.025) Urine Protein TRACE (Negative) Urine Ketones SMALL (NEGATIVE) Urine Blood 50 (0-5) [place]/ul Urine Nitrite NEGATIVE (NEGATIVE) Urine Bilirubin NEGATIVE (NEGATIVE) Urine Urobilinogen NORMAL (0-1) mg/dL Ur Leukocyte Esterase NEGATIVE (NEGATIVE) Urine Microscopic RBC 0-2 (0-2) /HPF Urine Culture Reflexed YES (NO) Urine Glucose NEGATIVE (NEGATIVE) mg/dL Monoscreen (Negative) Specimen Received 08/30/17 19308/30/17 08/31/17 08/31/17 Range/Units Unknown 01:45 04:55 WBC (4.0-10.5) K/mm3 RBC (4.1-5.6) M/mm3 Hgb (12.5-18.0) gm/dl Hct (42-50) % MCV (78-100) fl MCH (26-32) pg MCHC (32-36) g/dl RDW (11.5-14.0) % Plt Count (150-450) K/mm3 MPV (6-9.5) fl Gran % (36.0-66.0) % Eos # (Auto) (0-0.5) Absolute Lymphs (auto) (1.0-4.6) Absolute Monos (auto) (0.0-1.3) Lymphocytes % (24.0-44.0) % Monocytes % (0.0-12.0) % Eosinophils % (0.00-5.0) % Basophils % (0.0-0.4) % Absolute Granulocytes (1.4-6.9) Basophils # (0-0.4) Sodium (137-145) mmol/L Potassium (3.5-5.1) mmol/L Chloride (98-107) mmol/L Carbon Dioxide (22-30) mmol/L Anion Gap (5-15) MEQ/L BUN (9-20) mg/dL Creatinine (0.66-1.25) mg/dL Estimated GFR ML/MIN Glucose (74-106) mg/dL Lactic Acid (0.4-2.0) Calcium (8.4-10.2) mg/dL Total Bilirubin (0.2-1.3) mg/dL AST (17-59) U/L ALT (0-50) U/L Alkaline Phosphatase (38-126) U/L Creatine Kinase (55-170) U/L Troponin I 0.020 0.023 (0.000-0.034) ng/mL Serum Total Protein (6.3-8.2) g/dL Albumin (3.5-5.0) g/dL Ur Collection Type Urine Color (YELLOW) Urine Appearance (CLEAR) Urine pH (5-6) Ur Specific [place] (1.005-1.025) Urine Protein (Negative) Urine Ketones (NEGATIVE) Urine Blood (0-5) [place]/ul Urine Nitrite (NEGATIVE) Urine Bilirubin (NEGATIVE) Urine Urobilinogen (0-1) mg/dL Ur Leukocyte Esterase (NEGATIVE) Urine Microscopic RBC (0-2) /HPF Urine Culture Reflexed (NO) Urine Glucose (NEGATIVE) mg/dL Monoscreen NEGATIVE (Negative) Specimen Received 08/31/17 08/31/17 08/31/17 Range/Units 04:55 04:55 07:35 WBC 8.1 (4.0-10.5) K/mm3 RBC 4.00 L (4.1-5.6) M/mm3 Hgb 12.6 (12.5-18.0) gm/dl Hct 36.2 L (42-50) % MCV 90.5 (78-100) fl MCH 31.5 (26-32) pg MCHC 34.8 (32-36) g/dl RDW 13.9 (11.5-14.0) % Plt Count 116 L (150-450) K/mm3 MPV 10.4 H (6-9.5) fl Gran % 79.6 H (36.0-66.0) % Eos # (Auto) 0.02 (0-0.5) Absolute Lymphs (auto) 0.88 L (1.0-4.6) Absolute Monos (auto) 0.75 (0.0-1.3) Lymphocytes % 10.9 L (24.0-44.0) % Monocytes % 9.2 (0.0-12.0) % Eosinophils % 0.2 (0.00-5.0) % Basophils % 0.1 (0.0-0.4) % Absolute Granulocytes 6.45 (1.4-6.9) Basophils # 0.01 (0-0.4) Sodium 135 L (137-145) mmol/L Potassium 3.7 (3.5-5.1) mmol/L Chloride 108 H (98-107) mmol/L Carbon Dioxide 22 (22-30) mmol/L Anion Gap 9.2 (5-15) MEQ/L BUN 18 (9-20) mg/dL Creatinine 1.09 (0.66-1.25) mg/dL Estimated GFR > 60.0 ML/MIN Glucose 120 H (74-106) mg/dL Lactic Acid (0.4-2.0) Calcium 8.4 (8.4-10.2) mg/dL Total Bilirubin (0.2-1.3) mg/dL AST (17-59) U/L ALT (0-50) U/L Alkaline Phosphatase (38-126) U/L Creatine Kinase (55-170) U/L Troponin I 0.020 (0.000-0.034) ng/mL Serum Total Protein (6.3-8.2) g/dL Albumin (3.5-5.0) g/dL Ur Collection Type Urine Color (YELLOW) Urine Appearance (CLEAR) Urine pH (5-6) Ur Specific [place] (1.005-1.025) Urine Protein (Negative) Urine Ketones (NEGATIVE) Urine Blood (0-5) [place]/ul Urine Nitrite (NEGATIVE) Urine Bilirubin (NEGATIVE) Urine Urobilinogen (0-1) mg/dL Ur Leukocyte Esterase (NEGATIVE) Urine Microscopic RBC (0-2) /HPF Urine Culture Reflexed (NO) Urine Glucose (NEGATIVE) mg/dL Monoscreen (Negative) Specimen Received - Radiology Impressions Radiology Exams & Impressions: Radiology Procedures Category Date Time Status ABDOMEN AND PELVIS W/0 CONTRAS [CT] Stat Exams 08/30/17 20:33 Completed CHEST WITHOUT CONTRAST [CT] Stat Exams 08/30/17 20:30 Completed HEAD WITHOUT CONTRAST [CT] Stat Exams 08/30/17 20:30 Completed Assessment/Plan (1) Fever of unknown origin Current Visit: Yes Status: Acute Assessment & Plan: I think most likely UTI - urine culture is pending. Also in the differential is prostatitis, or, less likely, oral infection. Pt is on zosyn day #2, and must stay in the hospital at least until he is afebrile x 24 hours. If all other vitals are stable and he is feeling well, he may be able to d/c tomorrow on po antibiotics. I advised he may get a call changing his antibiotics if he goes home at that point. (2) Dehydration Current Visit: No Status: Acute Code(s): E86.0 - DEHYDRATION (3) Weakness Current Visit: No Status: Acute Assessment & Plan: would like for him to be up out of bed today as tolerated. Code(s): R53.1 - WEAKNESS
[2017-08-31] MEDS: Cardizem CD 180 MG PO SCH (15:50)
[2017-08-31] MEDS: PRADAXA 75 MG PO SCH (17:01)
[2017-08-31] MEDS ORDERED: NON-FORMULARY ITEM (Dabigatran Etexilate Mesylate [Pradaxa] 150 MG) PO SCH (22:00)
[2017-09-01] MEDS: Zosyn 3.375GM/100 Ml D5W 3.375 GM/100 ML IVPB IV SCH (05:24)
[2017-09-01 05:45] LABS: BASOPHIL % 0.2 % (0.0-0.4); Basophil (Absolute #) 0.01 (0-0.4); Eosinophil % 1.7 % (0.00-5.0); Eosinophil (Absolute #) 0.11 (0-0.5); Granulocyte Absolute (ANC) 5.23 (1.4-6.9); Granulocytes % 79.3 % (36.0-66.0); Hemoglobin 12.8 gm/dl (12.5-18.0); Lymphocyte (Absolute #) 0.72 (1.0-4.6); Lymphocytes % 10.9 % (24.0-44.0); Mean Cell Volume 89.4 fl (78-100); Mean Corpuscular Hemoglobin 30.9 pg (26-32); Mean Corpuscular Hgb Concent. 34.6 g/dl (32-36); Mean Platelet Volume 10.2 fl (6-9.5); Monocyte (Absolute #) 0.52 (0.0-1.3); Monocytes % 7.9 % (0.0-12.0); Platelet Count 127 K/mm3 (150-450); Red Blood Count 4.14 M/mm3 (4.1-5.6); Red Cell Distribution Width 13.9 % (11.5-14.0); White Blood Count 6.6 K/mm3 (4.0-10.5)
[2017-09-01 06:02] LABS: ALKALINE PHOSPHATASE 53 U/L (38-126); BLOOD UREA NITROGEN 12 mg/dL (9-20); CHLORIDE 109 mmol/L (98-107); Calcium 8.4 mg/dL (8.4-10.2); Carbon Dioxide 22 mmol/L (22-30); Creatinine 1 1.09 mg/dL (0.66-1.25); Glucose 116 mg/dL (74-106); Potassium 3.7 mmol/L (3.5-5.1); SGOT/AST 27 U/L (17-59); SGPT/ALT 37 U/L (0-50); SODIUM 138 mmol/L (137-145); Total Protein 5.5 g/dL (6.3-8.2)
[2017-09-01] MEDS: PRADAXA 75 MG PO SCH (07:59)
[2017-09-01] MEDS: Cardizem CD 180 MG PO SCH (09:55)
--- NOTE | 2017-09-01 10:42 | PCM.DS ---
Discharge Summary Date of Admission: 08/30/17 23:33 Admitting Physician: GIOVANNI PARISI Primary Care Provider: GIOVANNI PARISI Allergies Allergies No Known Drug Allergies Allergy (Verified 08/29/17 19:38) Hospital Summary - Hospital Course Hospital Course: Pt was admitted through ER with fever of 101.6 and not feeling well x 2d. He was put on IV zosyn although no particular nidus of infection was found - UA with some blood (but culture is now negative) and some hx oral infection. WBC 8.5. CT of the chest, abd/pelvis, and brain without acute findings. He felt much better after having IV fluids overnight, but stayed another night until he was afebrile for 24 hours. Last night he had some dry cough which has now resolved. Otherwise feeling well, up out of bed without issues. He will be discharged to home to finish a week of po augmentin. - Vitals & Intake/Output Vital Signs: Vital Signs Temperature 98.1 F 09/01/17 06:46 Pulse Rate 66 09/01/17 06:46 Respiratory Rate 20 09/01/17 06:46 Blood Pressure 123/65 09/01/17 06:46 O2 Sat by Pulse Oximetry 95 09/01/17 06:46 Intake & Output: Intake & Output 08/29/17 08/30/17 08/31/17 09/01/17 11:59 11:59 11:59 11:59 Intake Total 844 4904 Output Total 1775 Balance 844 3129 Weight 112.6 kg - Lab Result Diagrams: 09/01/17 05:15 09/01/17 05:15 Lab Results-Last 24 Hrs: Lab Results-Last 24 Hours 09/01/17 09/01/17 Range/Units 05:15 05:15 WBC 6.6 (4.0-10.5) K/mm3 RBC 4.14 (4.1-5.6) M/mm3 Hgb 12.8 (12.5-18.0) gm/dl Hct 37.0 L (42-50) % MCV 89.4 (78-100) fl MCH 30.9 (26-32) pg MCHC 34.6 (32-36) g/dl RDW 13.9 (11.5-14.0) % Plt Count 127 L (150-450) K/mm3 MPV 10.2 H (6-9.5) fl Gran % 79.3 H (36.0-66.0) % Eos # (Auto) 0.11 (0-0.5) Absolute Lymphs (auto) 0.72 L (1.0-4.6) Absolute Monos (auto) 0.52 (0.0-1.3) Lymphocytes % 10.9 L (24.0-44.0) % Monocytes % 7.9 (0.0-12.0) % Eosinophils % 1.7 (0.00-5.0) % Basophils % 0.2 (0.0-0.4) % Absolute Granulocytes 5.23 (1.4-6.9) Basophils # 0.01 (0-0.4) Sodium 138 (137-145) mmol/L Potassium 3.7 (3.5-5.1) mmol/L Chloride 109 H (98-107) mmol/L Carbon Dioxide 22 (22-30) mmol/L Anion Gap 10.0 (5-15) MEQ/L BUN 12 (9-20) mg/dL Creatinine 1.09 (0.66-1.25) mg/dL Estimated GFR > 60.0 ML/MIN Glucose 116 H (74-106) mg/dL Calcium 8.4 (8.4-10.2) mg/dL Total Bilirubin 1.00 (0.2-1.3) mg/dL AST 27 (17-59) U/L ALT 37 (0-50) U/L Alkaline Phosphatase 53 (38-126) U/L Serum Total Protein 5.5 L (6.3-8.2) g/dL Albumin 3.0 L (3.5-5.0) g/dL Micro Results-Entire Visit: Microbiology 08/30/17 19:36 Urine Culture - Final Urine, Void NO GROWTH - Radiology Exams Ordered Rad Exams-Entire Visit: Radiology Procedures Category Date Time Status ABDOMEN AND PELVIS W/0 CONTRAS [CT] Stat Exams 08/30/17 20:33 Completed CHEST WITHOUT CONTRAST [CT] Stat Exams 08/30/17 20:30 Completed HEAD WITHOUT CONTRAST [CT] Stat Exams 08/30/17 20:30 Completed Discharge Exam General Appearance: no apparent distress, alert Neurologic Exam: oriented x 3, cooperative Skin Exam: normal color, warm, dry, No rash Respiratory Exam: normal breath sounds, lungs clear, No crackles/rales, No rhonchi, No wheezing Cardiovascular Exam: regular rate/rhythm, normal heart sounds, No murmur Gastrointestinal/Abdomen Exam: soft, normal bowel sounds, No tenderness, No mass , No guarding, No rebound Extremity Exam: swelling (trace pretibial edema bilat) Back Exam: normal inspection, No rash Final Diagnosis/Problem List - Final Discharge Diagnosis/Problem (1) Fever of unknown origin Current Visit: Yes Status: Acute Assessment & Plan: Will send pt home on augmentin. Still unsure the etiology; could be prostatitis. UCx negative. Could be related to tooth pain. However, treating with 1 week of abx currently; he will f/u with Dr. Parisi, who can extend his antibiotic course if he feels it's necessary. (2) Dehydration Current Visit: No Status: Resolved (3) Weakness Current Visit: No Status: Resolved - Discharge Disposition: Home, Self-Care Condition: Stable Prescriptions: New Amoxicillin/Potassium Clav [Augmentin 875-125 Tablet] 875 mg PO BID #10 tablet Continue Dabigatran Etexilate Mesylate [Pradaxa] 150 mg PO BID #60 capsule Diltiazem HCl [Cardizem Cd] 180 mg PO DAILY #30 cap.er.24h Discontinued Amoxicillin [Amoxil] 500 mg PO TID Follow up with: GIOVANNI PARISI [Primary Care Provider] - 1 Week
[2017-09-01 11:34] VITALS: BP 132/68; PULSE 65; O2SAT 97
== END 2017-09-01 11:30 | disposition home or self-care (01) | DRG 641 ==
LOC: ED 18:54 → MED SURG 23:33
PROVIDERS: ADMIT Family Medicine; ATTEND Family Medicine
DX: E86.0 Dehydration (principal); R50.9 Fever, unspecified; R53.1 Weakness; R35.8 Other polyuria; K21.9 Gastro-esophageal reflux disease without esophagitis; Z79.01 Long term (current) use of anticoagulants; Z79.899 Other long term (current) drug therapy; M19.90 Unspecified osteoarthritis, unspecified site; Z87.891 Personal history of nicotine dependence
CPT/HCPCS: 36000; 36415; 70450; 71250; 74176; 80048; 80053; 81000; 82550; 83605; 84484; 85025; 86308; 87040; 87086; 93005; 93041; 96360; 96365; 96374; 99285; J2405; J2543; A9270-GY